=== PATIENT | male | born 1990 | race American Indian/Alaskan Native ===

== ENCOUNTER 2020-10-30 12:11 | Emergency (ER) | payer SELFPAY ==
[2020-10-30 12:58] VITALS: BP 119/72
[2020-10-30 13:41] LABS: Basophils % (Auto) 0.1 % (0.0-1.8); Eosinophils % (Auto) 0.3 % (0.0-4.3); Hemoglobin 13.9 gm/dl (11.8-15.2); Lymphocytes # (Auto) 0.9 K/mm3 (1.2-5.4); Lymphocytes % (Auto) 10.2 % (13.4-35.0); Mean Corpuscular HGB Conc 33 % (32-34); Mean Corpuscular Volume 88 fl (84-94); Monocytes # (Auto) 1.1 K/mm3 (0.0-0.8); Monocytes % (Auto) 13.2 % (0.0-7.3); Platelet Count 183 K/mm3 (140-440); Red Blood Count 4.78 M/mm3 (3.65-5.03); Red Cell Distribution Width 14.8 % (13.2-15.2)
[2020-10-30 14:10] LABS: Alanine Aminotransferase 12 units/L (7-56); Albumin 4.6 g/dL (3.9-5); BUN/Creatinine Ratio 11; Blood Urea Nitrogen 11 mg/dL (9-20); Calcium 9.7 mg/dL (8.4-10.2); Hemolysis Index 10
[2020-10-30 14:49] LABS: Bilirubin,Urine NEG (Negative); Blood,Urine SM (Negative); Color,Urine Yellow (Yellow); Mucus,Urine FEW /HPF; Protein,Urine <15 mg/dL mg/dL (Negative)
[2020-10-30 14:50] LABS: WBC,Urine > 182.0 /HPF (0.0-6.0)
[2020-10-30] MEDS ORDERED: LIDOCAINE-MPF (1%) 10 MG/1 ML VIAL 5 ML INFILTRATI ONE (14:58)
[2020-10-30] MEDS ORDERED: IBUPROFEN 600 MG TAB PO ONE (15:03)
--- NOTE | 2020-10-30 15:03 | Emergency Department Report ---
ED Male HPI - General Chief complaint: Abdominal Pain Stated complaint: HEAD/CHEST PAIN Source: patient Mode of arrival: Ambulatory Limitations: No Limitations - History of Present Illness Initial comments: 30-year-old -Citizen Of [place] male presents to the emergency room for dysuria headache and groin pain. Patient denies any fever chills no nausea no vomiting no testicular pain or testicular swelling. Patient does admit to lower back pain. MD Complaint: dysuria - Related Data Previous Rx's Medication Instructions Recorded Last Taken Type Azithromycin 1,000 mg PO ONCE #2 tablet 10/30/20 Unknown Rx DOXYCYCLINE Hyclate [Vibramycin 100 mg PO Q12HR 10 Days #20 capsule 10/30/20 Unknown Rx CAP] Allergies Allergy/AdvReac Type Severity Reaction Status Date / Time No Known Allergies Allergy Unverified 10/30/20 12:58 ED Review of Systems ROS: Stated complaint: HEAD/CHEST PAIN Other details as noted in HPI ED Past Medical Hx - Past Medical History Previous Medical History?: No - Surgical History Past Surgical History?: No - Social History Smoking Status: Current Every Day Smoker Substance Use Type: None - Medications Home Medications: Home Medications Medication Instructions Recorded Confirmed Last Taken Type Azithromycin 1,000 mg PO ONCE #2 tablet 10/30/20 Unknown Rx DOXYCYCLINE Hyclate [Vibramycin 100 mg PO Q12HR 10 Days #20 capsule 10/30/20 Unknown Rx CAP] ED Physical Exam - General Limitations: No Limitations General appearance: alert, in no apparent distress - Head Head exam: Present: atraumatic, normocephalic - Eye Eye exam: Present: normal appearance - ENT ENT exam: Present: mucous membranes moist - Neck Neck exam: Present: normal inspection - Respiratory Respiratory exam: Absent: accessory muscle use - GI/Abdominal GI/Abdominal exam: Present: soft - exam: Absent: testicular tenderness External exam: Present: other (Bilateral lymphadenopathy of the groin area.) - Extremities Exam Extremities exam: Present: normal inspection, full ROM - Back Exam Back exam: Present: normal inspection - Neurological Exam Neurological exam: Present: alert, oriented X3, normal gait - Psychiatric Psychiatric exam: Present: normal affect, normal mood - Skin Skin exam: Present: warm, dry, intact, normal color. Absent: rash ED Course Vital Signs 10/30/20 12:55 Temperature 98.9 F Pulse Rate 72 Respiratory 20 Rate Blood Pressure 119/72 O2 Sat by Pulse 99 Oximetry ED Medical Decision Making - Lab Data Result diagrams: 10/30/20 13:03 10/30/20 13:03 - Medical Decision Making 30-year-old -Citizen Of [place] male presents to the emergency room for dysuria headache and groin pain. Patient denies any fever chills no nausea no vomiting no testicular pain or testicular swelling. Patient does admit to lower back pain. New sexual partner. Patient has urine positive of greater than 182 WBCs and large amount of leukoesterase. Patient will be treated for urinary tract infection and possible STD. Patient will be given Rocephin 1 g IM ER visit. Patient be sent home on azithromycin and doxycycline. Patient is to follow-up at the health department for further STD evaluation and treatment. Critical care attestation.: If time is entered above; I have spent that time in minutes in the direct care of this critically ill patient, excluding procedure time. ED Disposition Clinical Impression: UTI (urinary tract infection), Concern about STD in male without diagnosis Disposition: DC-01 TO HOME OR SELFCARE Is pt being admited?: No Does the pt Need Aspirin: No Condition: Stable Instructions: Urinary Tract Infection, Adult, [id number] Additional Instructions: Complete antibiotics as prescribed. Increase your water intake. Please inform your sexual partner that you have been treated for gonorrhea and chlamydia and that he should rest refrain from intercourse for the next 7 days. I recommend to follow-up at the health department for full STD evaluation and treatment. Prescriptions: Azithromycin 1,000 mg PO ONCE #2 tablet DOXYCYCLINE Hyclate [Vibramycin CAP] 100 mg PO Q12HR 10 Days #20 capsule Referrals: [facility] [Outside] - 3-5 Days
== END 2020-10-30 16:56 | disposition home or self-care (01) ==
LOC: ED 12:11
DX: N39.0 Urinary tract infection, site not specified (principal); Z71.1 Person with feared health complaint in whom no diagnosis is made; F17.200 Nicotine dependence, unspecified, uncomplicated; Z79.899 Other long term (current) drug therapy
CPT/HCPCS: 36415; 80053; 81001; 85025; 96372; 99283; J0696